=== PATIENT | female | born 1950 | race Caucasian/White ===

== ENCOUNTER 2019-11-05 22:52 | Emergency (ER) | payer MEDICARE, OTHER, SELFPAY ==
[2019-11-05 23:02] VITALS: PULSE 87; RESP 18; TEMP 36.3; O2SAT 99; BMI 21.4
--- NOTE | 2019-11-05 23:31 | ED_ITS ---
HPI - Fall General: Chief Complaint: Fall Stated Complaint: fall Time Seen by Provider: 11/05/19 23:05 History of Present Illness: HPI Narrative: Patient states she was walking her dog tonight and she tripped over a rock and fell striking her face landed on her wrist has some abrasions to her hands but has lacerations to her face swollen lower lip. complaint: fall Onset (ago): hour(s) Fall from: standing Fall witnessed: no Place fall occurred: home Loss of consciousness: None Symptoms prior to fall: none Context: tripped/slipped Location of injury: face Location of injury - extremities: Right: hand Severity: mild Severity scale (1-10): 2 Associated symptoms-after fall: Reports no associated symptoms; Denies abdominal pain, chest pain or headache(s) Review of Systems Const: Denies: fever(s), chills or body aches Eyes: Denies: change in vision or blurry vision ENMT: Denies: throat pain or nasal congestion Card: Denies: chest pain or dyspnea on exertion Resp: Denies: dyspnea, productive cough or non-productive cough GI: Denies: abdominal pain, nausea or vomiting Musc: Denies: extremity pain Skin/Breast: Reports: other (Laceration below the nose and laceration to inside the mouth abrasions to the hands); Denies: rash Neuro: Denies: headache(s) Psych: Denies: anxiety or depression Junior/Lymph: Denies: easy bruising Physical Exam Const: COMMON NORMALS: no acute distress, average body habitus and patient oriented x3 HENMT: COMMON NORMALS: normocephalic HEAD & SCALP: normal to inspection and normocephalic FACE & SINUS: normal facial exam Eye: COMMON NORMALS: conjunctivae normal GENERAL EYE: appearance normal, both eyes and all related structures CONJUNCTIVA: Yes conjunctivae normal Neck/C-Spine: COMMON NORMALS: no JVD Chest: COMMONS NORMALS: normal inspection of the chest Resp: COMMON NORMALS: normal respiratory effort and clear to auscultation bilaterally AUSCULTATION: clear to auscultation bilaterally Cardio: COMMON NORMALS: no JVD, regular rate and regular rhythm RATE: regular rate RHYTHM: regular rhythm GI: COMMON NORMALS: Normal to inspection, nondistended, normoactive bowel sounds present Extremity: COMMON NORMALS: normal to inspection and full ROM NARRATIVE EXTREMITY EXAM: no pain in extremities. Neuro: COMMON NORMALS: patient oriented x3 Skin: NARRATIVE SKIN EXAM: Patient is obese shaped laceration below her nose above the upper lip. Has laceration to inside the mouth lower lip. Has swollen lower lip. She has a chipped tooth. And she has abrasions to both hands and wrist. Procedures Laceration Laceration 1: Site: face Size (cm): 2 Description: stellate Depth: simple, single layer and [id number] Local Anesthetic: lidocaine 1% and with epi Amount of anesthesia used (mL): 2 Pre-repair: wound explored and irrigated extensively Skin layer closed with: nylon Size (cm): 5-0 Number of sutures: 6 Technique: simple, interrupted Laceration 2: Site: other (mouth) Size (cm): 2 Description: stellate Depth: simple, single layer Local Anesthetic: lidocaine 1% and with epi Amount of anesthesia used (mL): 1 Pre-repair: wound explored and irrigated extensively Skin layer closed with: other (cat gut) Size (cm): 4-0 Number of sutures: 3 Technique: simple, interrupted Course Vital Signs: Vital signs: Vital Signs Temperature 97.3 F L 11/05/19 23:02 Pulse Rate 84 11/05/19 23:47 Respiratory Rate 18 11/05/19 23:47 Blood Pressure 125/74 11/05/19 23:47 Pulse Oximetry 94 11/05/19 23:47 Discharge Plan Discharge Patient Disposition: Home Clinical Impression: Laceration, Abrasion Condition: Stable Prescriptions: New Keflex 500 mg capsule 500 mg PO TID 7 Days Qty: 21 RF: 0 Discharge Orders: Discharge Order (Routine); Ordered 11/06/19 Ordered By: Jordan Brandon Referrals: Annabella Espinal MD [Primary Care Provider] - Discharge Diet: Usual diet Discharge Activity: Resume usual activity Patient Instructions: Suture Care (ED), Laceration (ED), Contusion in Adults (ED), Abrasion (ED), Absorbable Suture Care (ED) Activity Restrictions/Additional Instructions: Follow-up with medical provider as directed. Take medications as prescribed. Return to the ER or your medical provider if condition worsens. Please read and understand discharge instructions. If any questions ask please. Keep abrasions lacerations clean. Sutures out in 5 days. Check on tetanus status shot at [facility]. Coding Level of Care Code ED [employer] for Chg Fwd Exam Comprehensive
[2019-11-05 23:47] VITALS: BP 125/74; PULSE 84; RESP 18; O2SAT 94
[2019-11-06] MEDS: cephALEXin 500 mg Capsule PO (00:07)
[2019-11-06] MEDS: acetaminophen 500 mg Tablet 1000 MG PO (00:08)
== END 2019-11-06 00:15 | disposition home or self-care (01) ==
PROVIDERS: Emergency Provider Nurse Practitioner Family; PCP Family Medicine
DX: S01.81XA Laceration without foreign body of other part of head, initial encounter (principal); S01.511A Laceration without foreign body of lip, initial encounter; W18.09XA Striking against other object with subsequent fall, initial encounter
CPT/HCPCS: 12013; 12345; 99281; 99283

== ENCOUNTER 2019-12-30 11:59 | Outpatient (CLI) | payer MEDICARE, OTHER, SELFPAY ==
--- NOTE | 2019-12-30 12:14 | MM_ITS ---
WS: [id number] BILATERAL SCREENING DIGITAL MAMMOGRAM WITH CAD HISTORY: SCREENING COMPARISON: 10/26/2018, 10/13/2017, 10/10/2016 Bilateral CC and MLO views submitted. Computer aided detection analyzed. Breast composition: There are scattered areas of fibroglandular density. No suspicious masses, microc alcifications or architectural distortion. Stable asymmetry in the posterior medial RIGHT breast over multiple prior studies. MM/[place] [id number] IMPRESSION: BI-RADS: 2-Benign FOLLOW UP: 1 Year Follow-up
== END 2019-12-30 12:00 | disposition home or self-care (01) ==
LOC: RADSHAW 12:03
PROVIDERS: PCP Family Medicine; Visit Provider Family Medicine
DX: Z12.31 Encounter for screening mammogram for malignant neoplasm of breast (principal)
CPT/HCPCS: 77067

== ENCOUNTER 2021-01-29 11:27 | Outpatient (CLI) | payer MEDICARE, OTHER, SELFPAY ==
--- NOTE | 2021-01-29 11:32 | MM_ITS ---
WS: [id number] BILATERAL DIGITAL SCREENING MAMMOGRAPHY WITH CAD CLINICAL INFORMATION: SCREENING HISTORY: Screening mammogram. No current complaints. COMPARISON: December 30, 2019 TECHNIQUE: Bilateral CC and MLO views. FINDINGS: Scattered fibroglandular densities bilaterally. Ovoid asymmetry adjacent to the chest wall stable sin ce 2015. A few punctate calcifications. No suspicious focal mass, asymmetry, calcifications, or archi tectural distortion. No evidence of malignancy. MM/[place] [id number] IMPRESSION: BI-RADS: 2-Benign FOLLOW UP: 1 Year Follow-up Recommend return to annual screening mammography.
--- NOTE | 2021-01-29 11:58 | XR_ITS ---
WS: [email or web address] DEXA (DUAL ENERGY X-RAY ABSORPTIOMETRY) Bone mineral density was performed using a Yieldr machine. HISTORY: POSTMENOPAUSAL COMPARISON: None available. Lumbar spine BMD (L1-L4): 1.188 g/cm2 T score: 0.1 Z score: 1.7 Total hip BMD: Left: 0.802 g/cm2. T score: -1.6 Z score: -0.2 Right: 0.800 g/cm2. T score: -1.6 Z score: -0.2 10 year probability of a major osteoporotic fracture is 11%. XR/XR DEXA axial skeleton* [id number] IMPRESSION: OSTEOPENIA based upon the WHO classification for females.
== END 2021-01-29 11:28 | disposition home or self-care (01) ==
LOC: RADSHAW 11:31
PROVIDERS: PCP Family Medicine; Visit Provider Family Medicine
DX: Z12.31 Encounter for screening mammogram for malignant neoplasm of breast (principal); Z78.0 Asymptomatic menopausal state; M85.80 Other specified disorders of bone density and structure, unspecified site
CPT/HCPCS: 77067; 77080

== ENCOUNTER 2022-02-04 10:21 | Outpatient (CLI) | payer MEDICARE, OTHER, SELFPAY ==
--- NOTE | 2022-02-04 10:27 | MM_ITS ---
WS: [id number] Bilateral screening 3D tomosynthesis digital mammogram, 02/04/2022 Clinical Data: SCREENING Comparison: 01/29/2021, 12/30/2019, 10/18/2018, 10/13/2017, 10/10/2016, 10/10/2015, 03/28/2015, 09/20/2014, 08/30/2014, 08/16/2013, 07/23/2012, 06/12/2011, 05/28/2011, 05/15/2010, 05/04/2009, 05/05/2028, 04/28/2007 05/06/19 07. Findings: The breast parenchymal pattern shows hyperglandular tissue. No spiculated masses or clustered calcifi cations are seen. There are no secondary signs of carcinoma. There are mole markers on the left breas t. MM/[place] [id number] Impression: 1. Negative bilateral mammogram unchanged. 2. Recommend annual screening mammograms. BIRADS: 1-Negative FOLLOW UP: 1 Year Follow-up The CAD tray checker was used.
== END 2022-02-04 10:22 | disposition home or self-care (01) ==
LOC: RAD 10:21
PROVIDERS: PCP Family Medicine; Visit Provider Family Medicine
DX: Z12.31 Encounter for screening mammogram for malignant neoplasm of breast (principal)
CPT/HCPCS: 77063; 77067

== ENCOUNTER 2022-06-17 15:25 | Outpatient (CLI) | payer MEDICARE, OTHER, SELFPAY ==
--- NOTE | 2022-06-17 15:33 | CT_ITS ---
WS: [email or web address] EXAMINATION: CT abdomen pelvis w con* [id number] ORDER DATE: 06/17/2022 3:45 PM COMPARISON: None HISTORY: LEFT LOWER QUAD PAIN CONTRAST: 95 mL of Optiray 350 IV TOTAL EXAM DLP: 283.[address] scans at [facility] use at least one of these dose optimization techniques: automated e xposure control; mA and/or kV adjustment per patient size (includes targeted exams where dose is matc hed to clinical indication); or iterative reconstruction. TECHNIQUE: Transaxial imaging through the abdomen and pelvis was performed with 2-D reformats followi ng the intravenous administration of Omnipaque 350 95 ml. FINDINGS: There are no acute changes in the visualized lung bases. There is no sign of pneumoperitoneum. There is a small hiatal hernia. The liver was unremarkable. The gallbladder, spleen and pancreas were unremarkable. There is a normal appearance of both adrenal glands. There is a 10 mm cyst in the upper pole of the right kidney. No hydronephrosis or renal calculi. The small bowel pattern is not significantly dilated and there are no significant air-fluid levels. O ral contrast noted. There is moderate fecal loading of the colon. There is no ascites or increased cul-de-sac fluid. The urinary bladder as imaged is unremarkable. The uterus is normal size with punctate calcifications and some altered attenuation consistent with s mall fibroids. There is a 65 mm left ovarian or adnexal cystic lesion with a punctate calcification along the bombsight specialist ior wall. No apparent septation or other complex change noted. There are prominent osteoarthritic changes and joint space narrowing in each hip with a 2 cm cyst or geode in the lateral right acetabular region. There are degenerative disc and spine changes with gene ralized spondylosis There is marked disc narrowing with endplate sclerotic change from L2 to L5. CT/CT abdomen pelvis w con* [id number] IMPRESSION: Left adnexal cystic lesion 65 mm in diameter recommend correlating pelvic ultra sound study with gynecologic consultation in this age group recommended. Small uterine fibroids.
[2022-06-17 16:51] LABS: Blood Urea Nitrogen 13 mg/dL (8-23)
[2022-06-17] MEDS: iohexol 350 mg/mL 500 mL Btl (per mL) PO (17:00)
[2022-06-17] MEDS: iohexol 350 mg/mL 500 mL Btl (per mL) IV (17:05)
== END 2022-06-17 15:26 | disposition home or self-care (01) ==
LOC: RAD 15:28
PROVIDERS: PCP Family Medicine; Visit Provider Family Medicine
DX: D25.9 Leiomyoma of uterus, unspecified; N83.292 Other ovarian cyst, left side
CPT/HCPCS: 36415; 74177; 82565; 84520; Q9967

== ENCOUNTER 2022-12-13 13:15 | Outpatient (CLI) | payer MEDICARE, OTHER, SELFPAY ==
--- NOTE | 2022-12-13 | XR_ITS ---
WS: [email or web address] SCREENING DEXA SCAN [employer] CLINICAL INFORMATION: POSTMENOPAUSAL COMPARISON: 2020 FINDINGS: The L1-L4 bone mineral density measures 1.12. This corresponds to a T score score of -0.4 and Z score of 1.4. Left femoral neck bone mineral density measures 0.76. This corresponds to a T score of -1.9 and Z sco re of -0.2. Right femoral neck bone mineral density measures 0.75. This corresponds to a T score of -2.0 of and Z score of -0.3. Mean femoral neck bone mineral density measures 0.76. This corresponds to a T score of -2.0 and Z sco re of -0.2. IMPRESSION: Normal bone mineralization lumbar spine. Osteopenia femoral necks. Patient's FRAX calculated 10 year probability for major osteoporotic fracture is 12.7% and osteoporot ic hip fracture is 3.4%. Lumbar spine bone mineral density decrease -5.0%. Femoral neck bone mineral density decrease -5.0%.
== END 2022-12-13 13:16 | disposition home or self-care (01) ==
PROVIDERS: PCP Family Medicine; Visit Provider Physician Assistant
DX: Z78.0 Asymptomatic menopausal state (principal); M85.88 Other specified disorders of bone density and structure, other site
CPT/HCPCS: 77080

== ENCOUNTER 2023-02-07 10:57 | Outpatient (CLI) | payer MEDICARE, OTHER, SELFPAY ==
--- NOTE | 2023-02-07 11:02 | MM_ITS ---
WS: [email or web address] SCREENING DIGITAL TOMOSYNTHESIS MAMMOGRAM WITH CAD HISTORY: SCREENING COMPARISON: 02/04/2022, 01/29/2021 Bilateral CC and MLO with tomosynthesis views submitted. Synthetic mammography reviewed. Computer aid ed detection analyzed. Breast composition: The breasts are heterogeneously dense, which may obscure small masses. No suspici ous masses, microcalcifications or architectural distortion. Asymmetries in the medial RIGHT breast a nd lateral LEFT breast are similar to prior examinations. IMPRESSION: MM/[place] [id number] BI-RADS: 2-Benign FOLLOW UP: 1 Year Follow-up
== END 2023-02-07 10:58 | disposition home or self-care (01) ==
LOC: RAD 10:57
PROVIDERS: PCP Family Medicine; Visit Provider Physician Assistant
DX: Z12.31 Encounter for screening mammogram for malignant neoplasm of breast (principal)
CPT/HCPCS: 77063; 77067

== ENCOUNTER 2024-02-12 10:57 | Outpatient (CLI) | payer MEDICARE, OTHER, SELFPAY ==
--- NOTE | 2024-02-12 11:02 | MM_ITS ---
WS: [email or web address] BILATERAL SCREENING DIGITAL TOMOSYNTHESIS MAMMOGRAM WITH CAD HISTORY: SCREENING COMPARISON: 02/07/2023, 02/04/2022 and 10/26/2018 Bilateral CC and MLO views with tomosynthesis and synthetic mammography submitted. Computer aided det ection analyzed. Breast composition: There are scattered areas of fibroglandular density. No suspicious masses, microc alcifications or architectural distortion. Long-term stability round lobulated mass in the medial RIG HT breast. Benign calcifications in each breast. MM/MM scr BI tomosynthesis [id number] IMPRESSION: BI-RADS: 2 - Benign. FOLLOW UP: 1 Year Follow-up
== END 2024-02-12 10:58 | disposition home or self-care (01) ==
LOC: RAD 10:59
PROVIDERS: PCP Family Medicine; Visit Provider Physician Assistant
DX: Z12.31 Encounter for screening mammogram for malignant neoplasm of breast (principal); R92.323 Mammographic fibroglandular density, bilateral breasts; N63.10 Unspecified lump in the right breast, unspecified quadrant; R92.1 Mammographic calcification found on diagnostic imaging of breast
CPT/HCPCS: 77063; 77067

== ENCOUNTER 2024-03-09 15:56 | Outpatient (RCR) | payer MEDICARE, OTHER, SELFPAY | END 2024-03-30 23:59 | disposition home or self-care (01) | LOC: SPT 15:56 | PROVIDERS: Visit Provider Nurse Practitioner Family | DX: N81.10 Cystocele, unspecified (principal) | CPT/HCPCS: 97110; 97161; 97530 ==

== ENCOUNTER 2024-03-31 06:00 | Outpatient (RCR) | payer MEDICARE, OTHER, SELFPAY | END 2024-04-30 23:59 | disposition home or self-care (01) | LOC: SPT 06:00 | PROVIDERS: Visit Provider Nurse Practitioner Family | DX: N81.10 Cystocele, unspecified (principal) | CPT/HCPCS: 97110; 97530 ==

== ENCOUNTER 2024-05-01 06:00 | Outpatient (RCR) | payer MEDICARE, OTHER, SELFPAY | END 2024-05-28 23:59 | disposition home or self-care (01) | LOC: SPT 06:00 | PROVIDERS: Visit Provider Nurse Practitioner Family | DX: N81.10 Cystocele, unspecified (principal) | CPT/HCPCS: 97110; 97530 ==

== ENCOUNTER 2024-05-29 06:30 | Outpatient (RCR) | payer MEDICARE, OTHER, SELFPAY | END 2024-06-03 14:33 | disposition home or self-care (01) | LOC: SPT 06:30 | PROVIDERS: Visit Provider Nurse Practitioner Family | DX: N81.10 Cystocele, unspecified (principal) | CPT/HCPCS: 97110 ==

== ENCOUNTER 2025-02-18 12:20 | Outpatient (CLI) | payer MEDICARE, OTHER, SELFPAY ==
--- NOTE | 2025-02-18 | MM_ITS ---
WS: [email or web address] BILATERAL 3D TOMOSYNTHESIS DIGITAL SCREENING MAMMOGRAPHY WITH CAD CLINICAL INFORMATION: ANNUAL SCREENING HISTORY: Screening mammogram. No current complaints. COMPARISON: 2023 TECHNIQUE: Bilateral CC and MLO views. FINDINGS: Scattered fibroglandular densities bilaterally. No suspicious focal mass, asymmetry, calcifications, or architectural distortion. No evidence of malignancy. Incidental punctate calcifications. MM/MM scr tomosynthesis [id number] IMPRESSION: DENSITY: There are scattered areas of fibroglandular density. BI-RADS: 2 - Benign. FOLLOW UP: 1 Year Follow-up Recommend return to annual screening mammography.
--- NOTE | 2025-02-18 12:41 | XR_ITS ---
WS: [email or web address] SCREENING DEXA SCAN [employer] CLINICAL INFORMATION: OSTEOPENIA AFTER MENOPAUSE COMPARISON: 2022 FINDINGS: The L1-L4 bone mineral density measures 1.15. This corresponds to a T score score of -0.1 and Z score of 1.6. Left femoral neck bone mineral density measures 0.748 g/cm2. This corresponds to a T score of -2.1 and Z score of -0.3. Right femoral neck bone mineral density measures 0.766 g/cm2. This corresponds to a T score -1.9of and Z score of -0.2. Mean femoral neck bone mineral density measures 0.757 g/cm2. This corresponds to a T score of -2.0 and Z score of -0.3. XR/XR DEXA axial skeleton* [id number] IMPRESSION: Normal bone mineralization lumbar spine. Osteopenia femoral necks. Patient's FRAX calculated 10 year probability for major osteoporotic fracture i s 14.4% and osteoporotic hip fracture is 4.5%.
== END 2025-02-18 12:21 | disposition home or self-care (01) ==
PROVIDERS: PCP Physician Assistant; Visit Provider Physician Assistant
DX: Z12.31 Encounter for screening mammogram for malignant neoplasm of breast (principal); Z78.0 Asymptomatic menopausal state; M85.88 Other specified disorders of bone density and structure, other site; R92.323 Mammographic fibroglandular density, bilateral breasts; R92.1 Mammographic calcification found on diagnostic imaging of breast
CPT/HCPCS: 77063; 77067; 77080